=== PATIENT | female | born 1980 | race Caucasian/White ===

== ENCOUNTER 2017-06-15 12:05 | Emergency (ER) | payer OTHER ==
[2017-06-15 12:05] VITALS: BMI 36.1
[2017-06-15 12:14] VITALS: BP 121/77; PULSE 87; RESP 18; TEMP 98.2; O2SAT 98
--- NOTE | 2017-06-15 12:25 | ED PDOC ---
HPI: Headache Time Seen by Provider: 06/15/17 12:20 Chief Complaint (Nursing): Headache Chief Complaint (Provider): Headache History Per: Patient History/Exam Limitations: no limitations Onset/Duration Of Symptoms: Days (x3) Current Symptoms Are (Timing): Still Present Additional Complaint(s): 37 year old female presents to ED with complaints of headache x3 days. Patient notes that she has had headaches in the past, but notes that this one feels different as her entire face hurts. Patient gestures to her sinuses when asked about the origination of pain. Also notes pain to her teeth. Denies any recent illnesses and confirms she has been relieving the pain with Tylenol. PCP: None Past Medical History Reviewed: Historical Data, Nursing Documentation, Vital Signs Vital Signs: Last Vital Signs Temp 98.2 F 06/15/17 12:11 Pulse 87 06/15/17 12:11 Resp 18 06/15/17 12:11 BP 121/77 06/15/17 12:11 Pulse Ox 98 06/15/17 12:11 - Family History Family History: States: Unknown Family Hx - Living Arrangements Living Arrangements: With Family - Social History Alcohol: None Drugs: Denies - Home Medications Home Medications: Ambulatory Orders Medication Instructions Recorded Multivit/Folic Acid/I 1 tab PO DAILY 08/12/15 [ Plus] Docusate [Colace] 100 mg PO BID #0 cap 08/15/15 Ferrous Sulfate 325 mg PO TID #90 tablet 08/15/15 Ibuprofen [Motrin Tab] 600 mg PO Q6 #0 tab 08/15/15 oxyCODONE/Acetaminophen [Percocet 1 tab PO Q6 #0 tab 08/15/15 5/325 mg Tab] Amoxicillin/Clavulanate [Augmentin 1 tab PO BID #20 tab 06/15/17 875 MG-125 MG] - Allergies Allergies/Adverse Reactions: Allergies Allergy/AdvReac Type Severity Reaction Status Date / Time ciprofloxacin [From Cipro] AdvReac VOMITING Verified 06/15/17 12:10 ciprofloxacin HCl AdvReac VOMITING Verified 06/15/17 12:10 [From Cipro] Review of Systems ROS Statement: Except As Marked, All Systems Reviewed And Found Negative Neurological: Positive for: Headache (motions to sinuses when asked about pain) Physical Exam - Reviewed Nursing Documentation Reviewed: Yes Vital Signs Reviewed: Yes - Physical Exam Appears: Positive for: Non-toxic, No Acute Distress Skin: Positive for: Normal Color, Warm, Dry Neurologic/Psych: Positive for: Alert, Oriented. Negative for: Motor/Sensory Deficits Comments: Face: (+) bilateral maxillary sinus and frontal pain, TTP (-) erythema or edema Patient indicates tooth pain - ECG O2 Sat by Pulse Oximetry: 98 (RA) Pulse Ox Interpretation: Normal Medical Decision Making Medical Decision Makin Initial impression: sinusitis Initial plan: * Acetaminophen 650mg PO * Re-eval Scribe Attestation: Documented by Elizabeth Urias, acting as a scribe for Brant Pak PA-C. Provider Scribe Attestation: All medical record entries made by the Scribe were at my direction and personally dictated by me. I have reviewed the chart and agree that the record accurately reflects my personal performance of the history, physical exam, medical decision making, and the department course for this patient. I have also personally directed, reviewed, and agree with the discharge instructions and disposition. Disposition - Clinical Impression Clinical Impression: Sinusitis - Disposition Disposition Time: 13:00 Condition: GOOD Prescriptions: Amoxicillin/Clavulanate [Augmentin 875 MG-125 MG] 1 tab PO BID #20 tab Instructions: Sinusitis in Adults, Sinusitis, Adult (DC), Sinus Headache (DC) Forms: [employer] (Macedonian)
== END 2017-06-15 13:04 | disposition home or self-care (01) ==
LOC: H.ER 12:05
DX: J32.9 Chronic sinusitis, unspecified (principal)

== ENCOUNTER 2017-11-14 19:28 | Emergency (ER) | payer OTHER ==
[2017-11-14 19:28] VITALS: BMI 36.1
--- NOTE | 2017-11-14 21:52 | ED PDOC ---
HPI: Female Pain Time Seen by Provider: 11/14/17 21:36 Chief Complaint (Nursing): Female Genitourinary Chief Complaint (Provider): Female Genitourinary History Per: Patient History/Exam Limitations: no limitations Onset/Duration Of Symptoms: Days (x4) Current Symptoms Are (Timing): Still Present Additional Complaint(s): 37 year old female presents to the ED for evaluation of dysuria, increased frequency, and vaginal itching for the last four days. She otherwise denies concern for STD, denies vaginal discharge, hematuria, back pain, nausea, vomiting, fever, or chills. PMD: none provided Past Medical History Reviewed: Historical Data, Nursing Documentation, Vital Signs Vital Signs: Last Vital Signs Temp 98.5 F 11/14/17 20:17 Pulse 70 11/14/17 20:17 Resp 19 11/14/17 20:17 BP 132/88 11/14/17 20:17 Pulse Ox 98 11/14/17 20:17 - Medical History PMH: No Chronic Diseases - Surgical History Surgical History: No Surg Hx - Family History Family History: States: Unknown Family Hx - Home Medications Home Medications: Ambulatory Orders Medication Instructions Recorded Multivit/Folic Acid/I 1 tab PO DAILY 08/12/15 [ Plus] Docusate [Colace] 100 mg PO BID #0 cap 08/15/15 Ferrous Sulfate 325 mg PO TID #90 tablet 08/15/15 Ibuprofen [Motrin Tab] 600 mg PO Q6 #0 tab 08/15/15 oxyCODONE/Acetaminophen [Percocet 1 tab PO Q6 #0 tab 08/15/15 5/325 mg Tab] Amoxicillin/Clavulanate [Augmentin 1 tab PO BID #20 tab 06/15/17 875 MG-125 MG] Fluconazole [Diflucan] 150 mg PO ACB #1 tab 11/14/17 Sulfamethoxazole/Trimethoprim 1 tab PO BID 5 Days tab 11/14/17 [Bactrim DS 800 mg-160 mg] - Allergies Allergies/Adverse Reactions: Allergies Allergy/AdvReac Type Severity Reaction Status Date / Time ciprofloxacin [From Cipro] AdvReac VOMITING Verified 06/15/17 12:10 ciprofloxacin HCl AdvReac VOMITING Verified 06/15/17 12:10 [From Cipro] Review of Systems ROS Statement: Except As Marked, All Systems Reviewed And Found Negative Constitutional: Negative for: Fever, Chills Gastrointestinal: Negative for: Nausea, Vomiting Genitourinary Female: Positive for: Dysuria, Frequency, Other (vaginal itching) . Negative for: Hematuria, Vaginal Discharge Musculoskeletal: Negative for: Back Pain Physical Exam - Reviewed Nursing Documentation Reviewed: Yes Vital Signs Reviewed: Yes - Physical Exam Appears: Positive for: No Acute Distress Head Exam: Positive for: ATRAUMATIC, NORMOCEPHALIC Skin: Positive for: Normal Color, Warm Eye Exam: Positive for: Normal appearance Neck: Positive for: Normal, Painless ROM, Supple Cardiovascular/Chest: Positive for: Regular Rate, Rhythm Respiratory: Positive for: Normal Breath Sounds. Negative for: Accessory Muscle Use, Respiratory Distress Gastrointestinal/Abdominal: Positive for: Soft, Tenderness (mild suprapubic) Pelvic Exam: Positive for: Other (pt deferred vaginal exam) Back: Positive for: Normal Inspection Extremity: Positive for: Normal ROM Neurologic/Psych: Positive for: Alert, Oriented (x3). Negative for: Motor/ Sensory Deficits - ECG O2 Sat by Pulse Oximetry: 98 (RA) Pulse Ox Interpretation: Normal Medical Decision Making Medical Decision Making: Time: 2149 Initial Impression: UTI, vaginitis Dip (+) blood and leuks Pt deferred vaginal exam. Given RX for Diflucan and Bactrim PO Advised to [facility] with [facility] Disposition - Clinical Impression Clinical Impression: Female genitourinary symptoms, Urinary tract infection - Patient ED Disposition Is Patient to be Admitted: No - Disposition Disposition: Routine/Home Disposition Time: 22:57 Condition: STABLE Prescriptions: Fluconazole [Diflucan] 150 mg PO ACB #1 tab Sulfamethoxazole/Trimethoprim [Bactrim DS 800 mg-160 mg] 1 tab PO BID 5 Days tab Instructions: Urinary Tract Infections in Adults Forms: [facility] (P[place]dein[place])
[2017-11-14 23:21] VITALS: BP 128/72; PULSE 76; RESP 18; TEMP 98.2; O2SAT 99
== END 2017-11-14 23:20 | disposition home or self-care (01) ==
LOC: H.ER 19:28
DX: N39.0 Urinary tract infection, site not specified (principal)

== ENCOUNTER 2018-02-11 18:13 | Emergency (ER) | payer OTHER ==
[2018-02-11 18:13] VITALS: BMI 36.1
[2018-02-11 18:38] VITALS: TEMP 98.5; O2SAT 99
--- NOTE | 2018-02-11 19:18 | ED PDOC ---
HPI: Back Time Seen by Provider: 02/11/18 18:58 Chief Complaint (Nursing): Back Pain Chief Complaint (Provider): Back Pain History Per: Patient History/Exam Limitations: no limitations Onset/Duration Of Symptoms: Days (x1 week) Current Symptoms Are (Timing): Still Present Additional Complaint(s): 37 year old female with no significant PMH presents to the ED for evaluation of dysuria, vaginal itching and thick white vaginal discharge x 1 week. Patient additionally notes lower back and bilateral breast pain that has been going on for the past two months, taking Tylenol for all symptoms with no relief. Pt saw rug scratcher yesterday for back and breast pain, and was given prescriptions for outpatient MRI and Mammogram. Pt did not discuss vaginal or urinary symptoms with rug scratcher, because there was no time, according to patient. LMP 01/20/18. Otherwise, denies fever and chills, hematuria, abdominal pain, N/V/D, headache, nipple discharge, breast skin changes or redness, . PMD: none provided Past Medical History Reviewed: Historical Data, Nursing Documentation, Vital Signs Vital Signs: Last Vital Signs Temp 98.5 F 02/11/18 18:35 Pulse 83 02/11/18 18:35 Resp 16 02/11/18 18:35 BP 130/80 02/11/18 18:35 Pulse Ox 99 02/11/18 18:35 - Medical History PMH: No Chronic Diseases - Family History Family History: States: Unknown Family Hx - Home Medications Home Medications: Ambulatory Orders Medication Instructions Recorded Multivit/Folic Acid/I 1 tab PO DAILY 08/12/15 [ Plus] Docusate [Colace] 100 mg PO BID #0 cap 08/15/15 Ferrous Sulfate 325 mg PO TID #90 tablet 08/15/15 Ibuprofen [Motrin Tab] 600 mg PO Q6 #0 tab 08/15/15 oxyCODONE/Acetaminophen [Percocet 1 tab PO Q6 #0 tab 08/15/15 5/325 mg Tab] Amoxicillin/Clavulanate [Augmentin 1 tab PO BID #20 tab 06/15/17 875 MG-125 MG] Fluconazole [Diflucan] 150 mg PO ACB #1 tab 11/14/17 Sulfamethoxazole/Trimethoprim 1 tab PO BID 5 Days tab 11/14/17 [Bactrim DS 800 mg-160 mg] Naproxen 500 mg PO Q12H #30 tab 02/11/18 Nitrofurantoin Macrocrystals 100 mg PO Q12H #13 cap 02/11/18 [Macrobid] - Allergies Allergies/Adverse Reactions: Allergies Allergy/AdvReac Type Severity Reaction Status Date / Time ciprofloxacin HCl AdvReac VOMITING Verified 02/11/18 18:33 [From Cipro] Review of Systems ROS Statement: Except As Marked, All Systems Reviewed And Found Negative Constitutional: Negative for: Fever, Chills Eyes: Negative for: Vision Change ENT: Negative for: Throat Pain Cardiovascular: Negative for: Chest Pain, Palpitations Respiratory: Negative for: Cough, Shortness of Breath Gastrointestinal: Negative for: Nausea, Vomiting, Abdominal Pain Genitourinary Female: Positive for: Dysuria, Vaginal Discharge (white, with itching). Negative for: Frequency, Incontinence, Vaginal Bleeding, Rash Musculoskeletal: Positive for: Back Pain (bilateral lower), Other (bilat breast pain). Negative for: Neck Pain Skin: Negative for: Rash, Bruising Neurological: Negative for: Weakness, Numbness, Altered Mental Status, Headache, Dizziness Physical Exam - Reviewed Nursing Documentation Reviewed: Yes Vital Signs Reviewed: Yes - Physical Exam Appears: Positive for: No Acute Distress Head Exam: Positive for: ATRAUMATIC, NORMOCEPHALIC Skin: Positive for: Normal Color, Warm, Dry Eye Exam: Positive for: Normal appearance Neck: Positive for: Normal, Painless ROM, Supple Cardiovascular/Chest: Positive for: Regular Rate, Rhythm Respiratory: Positive for: Normal Breath Sounds. Negative for: Accessory Muscle Use, Respiratory Distress Gastrointestinal/Abdominal: Positive for: Normal Exam, Bowel Sounds (normoactive), Soft. Negative for: Tenderness Pelvic Exam: Positive for: External Exam Normal, Bimanual Exam Normal, No Cerv. Motion Tender, No Masses, Discharge (thick, white curd-like discharge). Negative for: Active Bleeding, Cervicitis, Lesions Back: Positive for: Normal Inspection, Other (bilateral paraspinal lumbar tenderness). Negative for: L CVA Tenderness, R CVA Tenderness, Vertebral Tenderness, Decreased ROM, Muscle Spasm Extremity: Positive for: Normal ROM, Capillary Refill (<2s). Negative for: Tenderness, Deformity, Swelling Neurologic/Psych: Positive for: Alert, Oriented (x3), Gait (steady). Negative for: Motor/Sensory Deficits - Laboratory Results Result Diagrams: 02/11/18 20:33 02/11/18 22:10 Urine POC: Negative Urine dip results: Positive for: Leukocyte Esterase. Negative for: Blood, Nitrate, Ketones, Glucose, Bilirubin - ECG O2 Sat by Pulse Oximetry: 99 (RA) Pulse Ox Interpretation: Normal Medical Decision Making Medical Decision Making: Time: 1857 Initial Impression: back pain, dysuria, possible UTI Initial Plan: --CMP --CBC --Chlamydia/GC RNA, TMA --Urine culture --U-preg --Urinalysis --Pelvic Exam 20:30 CBC: wnl POC preg: negative UA: small leuk esterase Pelvic exam findings suspicious for candidal vaginitis, will treat with Diflucan 150mg PO here in ED 22:10 Just updated that CMP hemolyzed, needed to be redrawn Impression: Vaginal Candidiasis, UTI, Chronic back pain Plan: * Diflucan * Macrobid * Naproxen * MRI and Mammogram as scheduled * Followup with rug scratcher as scheduled * Followup with clinic as needed * Return to ER for new/worsening symptoms Scribe Attestation: Documented by Cat Daly, acting as a scribe for Akua Villanueva PA-C Provider Scribe Attestation: All medical record entries made by the Scribe were at my direction and personally dictated by me. I have reviewed the chart and agree that the record accurately reflects my personal performance of the history, physical exam, [facility] decision making, and the department course for this patient. I have also personally directed, reviewed, and agree with the discharge instructions and disposition. Disposition - Clinical Impression Clinical Impression: UTI (urinary tract infection), Candidal vaginitis - Disposition Referrals: [facility] [Outside] Disposition: Routine/Home Disposition Time: 22:10 Condition: STABLE Additional Instructions: Aumentar los fluidos [place] antibiticos (macrobidos) cada 12 horas tam 7 brownlee. [place] naproxeno cada 12 horas con alimentos segn sea necesario para el dolor. Mamografa y resonancia magntica segn lo programado por el gineclogo Seguimiento con gineclogo dentro de 2 brownlee. Regrese a la shaina de emergencias para cualquier sntoma nuevo / que empeora Prescriptions: Naproxen 500 mg PO Q12H #30 tab Nitrofurantoin Macrocrystals [Macrobid] 100 mg PO Q12H #13 cap Instructions: Urinary Tract Infections in Adults Forms: [facility] (Croatian) Print Language: TURKISH
[2018-02-11 20:41] LABS: SQUAMOUS EPITHIAL 2 /hpf (0-5); URINE BACTERIA RARE (<OCC); URINE BILIRUBIN NEGATIVE (NEGATIVE); URINE BLOOD NEGATIVE (NEGATIVE); URINE CLARITY SLIGHTY-CLOUDY (Clear); URINE COLOR YELLOW (YELLOW); URINE GLUCOSE (UA) NEG (Normal); URINE LEUKOCYTE ESTERASE SMALL Leu/uL (Negative); URINE PROTEIN NEGATIVE (NEGATIVE); URINE UROBILINOGEN 0.2-1.0 mg/dL (0.2-1.0)
[2018-02-11 20:44] LABS: HEMOGLOBIN 14.1 g/dL (12.0-16.0); MEAN CELL VOLUME 88.5 fl (81.0-99.0); MEAN CORPUSCULAR HEMOGLOBIN 30.3 pg (27.0-31.0); MEAN CORPUSCULAR HGB CONC 34.2 g/dL (33.0-37.0); RBC 4.66 Mil/uL (3.80-5.20); RED CELL DISTRIBUTION WIDTH 13.9 % (11.5-14.5); WHITE BLOOD COUNT 10.4 K/uL (4.8-10.8)
[2018-02-11] MEDS ORDERED: Fluconazole 150 MG TAB PO ONE ×2 (21:59→22:09)
[2018-02-11 22:29] LABS: ALB/GLOB RATIO 1.4 (1.0-2.1); ALBUMIN 4.7 g/dL (3.5-5.0); ALT/SGPT 42 U/L (9-52); AST/SGOT 49 U/L (14-36); BLOOD UREA NITROGEN 20 mg/dl (7-17); CALCIUM 9.1 mg/dL (8.4-10.2); GFR NON-AFRICAN AMERICAN > 60
[2018-02-11 22:46] VITALS: BP 133/77; PULSE 80; RESP 18
== END 2018-02-11 22:45 | disposition home or self-care (01) ==
LOC: H.ER 18:13
DX: N39.0 Urinary tract infection, site not specified (principal)